=== PATIENT | female | born 2000 | race Caucasian/White ===

== ENCOUNTER 2019-05-13 18:58 | Emergency (ER) | payer BC, OTHER, SELFPAY ==
[2019-05-13] MEDS ORDERED: Fentanyl 100 MCG/2 ML VIAL ONE (19:16)
[2019-05-13 19:18] LABS: #Basophils 0.1 thou/uL (0.0-0.2); #Eosinphils 0.3 thou/uL (0.0-0.7); #Lymphocytes 2.3 thou/uL (1.20-3.40); #Monocytes 0.8 thou/uL (0.11-0.59); #Neutrophils 5.5 thou/uL (1.40-6.50); %Basophils 0.7 % (0.0-1.0); %Eosinophils 3.7 % (0.0-10.0); %Lymphocytes 25.8 % (28.0-48.0); %Monocytes 8.8 % (0.0-4.0); %Neutrophils 61.1 % (31.0-61.0); Hemoglobin 13.2 g/dL (12.0-16.0); Mean Corpuscular HGB CONC 34.7 g/dL (32.0-36.0); Mean Corpuscular Volume 89.1 fL (78.0-98.0); Mean Platelet Volume 7.4 fL (7.4-10.4); Platelet Count 279 thou/uL (130-400); RBC Distribution Width 11.3 % (11.5-14.5); Red Blood Cell (RBC) Count 4.26 mill/uL (4.00-5.20)
[2019-05-13 19:25] LABS: BHCG - Serum Negative (NEGATIVE); Pregs Control Bar Appear? YES (CONTROL BAR)
[2019-05-13 19:26] LABS: Pregs Control Background? CLEAR/WHITE (CLR/WHITE)
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
[2019-05-13 19:42] LABS: ALT (SGPT) 15 U/L (8-55); AST (SGOT) 17 U/L (5-30); Albumin 3.9 g/dL (3.5-5.0); Alkaline Phosphatase 77 U/L (40-100); Anion Gap 9 mmol/L (10-20); BUN (Urea Nitrogen) 12 mg/dL (8.4-21.0); Bilirubin, Total 0.3 mg/dL (0.2-1.2); Calc. Creatinine Clearance 0 mL/min (70-130); Calcium 8.5 mg/dL (7.8-10.44); Carbon Dioxide 24 mmol/L (22-29); Chloride 108 mmol/L (98-107); Estimated GFR-MDRD Greater than 90; Globulin 2.8 g/dL (2.4-3.5); Glucose 137 mg/dL (70-105); Potassium 3.8 mmol/L (3.5-5.1); Protein, Total 6.7 g/dL (6.0-8.3); Sodium 137 mmol/L (136-145)
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
[2019-05-13] MEDS ORDERED: Aspirin 325 MG TAB ONE (19:45)
[2019-05-13] MEDS ORDERED: Ketorolac Tromethamine 30 MG/ML VIAL ONE (19:46)
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
[2019-05-13] MEDS ORDERED: HYDROcodone/Acetaminophen 5/325 mg Tablet ONE (21:05)
== END 2019-05-13 21:16 | disposition home or self-care (01) ==
LOC: ERS 18:58
DX: S43.402A Unspecified sprain of left shoulder joint, initial encounter (principal); S00.03XA Contusion of scalp, initial encounter; J45.909 Unspecified asthma, uncomplicated; G90.1 Familial dysautonomia [Riley-Day]; Z79.82 Long term (current) use of aspirin; Z79.899 Other long term (current) drug therapy; V89.2XXA Person injured in unspecified motor-vehicle accident, traffic, initial encounter
CPT/HCPCS: 70450; 71045; 72125; 72170; 80053; 84703; 85025; 96374; 96375; G0390; J1885; J3010